=== PATIENT | male | born 1990 | race Caucasian/White ===

== ENCOUNTER 2024-10-25 03:57 | Emergency (ER) | payer BC ==
[~2024-10-25] VITALS: Ht 182.9 cm; Wt 127.4 kg
[2024-10-25 04:31] LABS: BASO # 0.1 10^3/uL (0.0-0.2); BASO % 0.6 % (0.0-1.0); EOS # 0.2 10^3/uL (0.0-0.5); EOS % 2.1 % (0.0-3.0); HEMATOCRIT 48.3 % (42.0-52.0); LYMPH # 3.6 10^3/uL (1.5-5.0); LYMPH % 35.9 % (24.0-44.0); MEAN CORPUSCULAR HEMOGLOBIN 30.4 pg (27.0-33.0); MEAN CORPUSCULAR HGB CONC 35.2 g/dl (32.0-36.5); MEAN CORPUSCULAR VOLUME 86.4 fl (80.0-96.0); MONO # 0.8 10^3/uL (0.0-0.8); NEUTROPHILS # 5.3 10^3/uL (1.5-8.5); NEUTROPHILS % 53.1 % (36.0-66.0); PLATELET COUNT, AUTOMATED 304 10^3/uL (150-450); RED BLOOD COUNT 5.59 10^6/uL (4.30-6.10); WHITE BLOOD COUNT 9.9 10^3/uL (4.0-10.0)
[2024-10-25 05:03] LABS: LIPASE 48 U/L (12-53)
[2024-10-25 05:06] LABS: ALBUMIN 4.4 G/DL (3.2-5.2); ALKALINE PHOSPHATASE 63 U/L (40-129); ALT/SGPT 81 U/L (7.0-40); AST/SGOT 34 U/L (<34); BILIRUBIN,DIRECT 0.3 MG/DL (<0.4); BLOOD UREA NITROGEN 14 MG/DL (9-23); CALCIUM LEVEL 9.3 MG/DL (8.5-10.1); CARBON DIOXIDE LEVEL 27 MMOL/L (20-31); CHLORIDE LEVEL 105 MMOL/L (98-107); GLOMERULAR FILTRATION RATE > 90.0 (>60); GLUCOSE, FASTING 118 MG/DL (60-100); POTASSIUM SERUM 4.4 MMOL/L (3.5-5.1); SODIUM LEVEL 141 MMOL/L (136-145); TOTAL PROTEIN 7.6 G/DL (5.7-8.2)
[2024-10-25] MEDS: ONDANSETRON 4MG 2ML VIAL IV ONE (05:29)
[2024-10-25] MEDS: KETOROLAC 30 MG/ML 1ML VIAL IV ONE (05:29)
[2024-10-25] MEDS ORDERED: ISOVUE-370 76% 100ML VIAL As Ordered ONE (08:33)
[2024-10-25] MEDS: ACETAMINOPHEN *IV* 1,000 MG in IV 1 EA IV ONE (08:54)
[2024-10-25] MEDS: NS (Normal Saline) 0.9% 1,000 ML IV ONE (08:54)
[2024-10-25 09:01] VITALS: BP 166/88; TEMP 97.3; O2SAT 98
[2024-10-25] MEDS: MORPHINE 4 MG/ML 1ML VIAL IV ONE (09:11)
[2024-10-25] MEDS ORDERED: CARA1TAB6 PO (09:50)
[2024-10-25] MEDS ORDERED: PERC5TAB12 PO (09:50)
[2024-10-25] MEDS ORDERED: OMEP40CA4 PO (09:50)
== END 2024-10-25 10:10 | disposition home or self-care (01) ==
LOC: M ED 03:57
DX: R10.9 Unspecified abdominal pain (principal); F10.10 Alcohol abuse, uncomplicated; Z88.0 Allergy status to penicillin; Z79.899 Other long term (current) drug therapy
CPT/HCPCS: 74177; 76705; 80048; 80076; 83690; 85025; 96365; 96375; 99284; J0131; J1885; J2405; Q9967